=== PATIENT | male | born 1955 | race Caucasian/White ===

== ENCOUNTER → 2021-07-23 | Outpatient (CLI) | payer MEDICARE ==
[2021-07-23 16:58] LABS: HEMOGLOBIN 15.4 gm/dl (14.0-17.5); RED BLOOD COUNT 5.59 M/UL (4.20-5.50); WHITE BLOOD COUNT 9.9 K/UL (4.5-11.0)
[2021-07-23 17:15] LABS: BUN/CREATININE RATIO 12 (0-10)
== END ==
LOC: LAB 15:56
PROVIDERS: Internal Medicine Interventional Cardiology
DX: I11.0 Hypertensive heart disease with heart failure (principal); I50.21 Acute systolic (congestive) heart failure; I25.10 Atherosclerotic heart disease of native coronary artery without angina pectoris; K74.60 Unspecified cirrhosis of liver; R78.5 Finding of other psychotropic drug in blood; I25.5 Ischemic cardiomyopathy
CPT/HCPCS: 80048; 85025; 85610; 85730

== ENCOUNTER → 2021-08-04 | Outpatient (CLI) | payer MEDICARE ==
[~2021-08-04] MED LIST: AMOX TR-K CLV1 EAC4 PO; BUDESONIDE-FO10.2 G1 INH; CARVEDILOL3.125 MG PO; ECOTRIN81 MG PO; ENTRESTO 24 MG1 EACH PO; FEROSUL325 MG PO; K-DUR TAB 10 M10 MEQ PO; LIPITOR TAB 2020 MG PO; NORVASC10 MG PO; OXYCONTIN40 MG PO; PERCOCET 10-321 EACH PO; PROAIR DIGIHAL90 MCG INH; SPIRONOLACTONE25 MG PO
== END ==
LOC: CATH 08:00
DX: I25.118 Atherosclerotic heart disease of native coronary artery with other forms of angina pectoris (principal); I25.5 Ischemic cardiomyopathy; I11.0 Hypertensive heart disease with heart failure; I50.9 Heart failure, unspecified; E78.5 Hyperlipidemia, unspecified; K74.60 Unspecified cirrhosis of liver; I25.2 Old myocardial infarction; Z79.82 Long term (current) use of aspirin; Z79.899 Other long term (current) drug therapy
CPT/HCPCS: 85347; 99152; 99153; C1753; C1769; C1887; C1894; C9600; J1644; J2250; J3010; J3246; J7030; Q9965